=== PATIENT | female | born 1955 | race Caucasian/White ===

== ENCOUNTER 2024-05-02 10:12 | Inpatient (IN) | payer MEDICARE, OTHER ==
[2024-05-02] VITALS (9 sets, daily range): BP systolic 107–120; BP diastolic 62–69; TEMP 98.3–98.6; O2SAT 93–99
[~2024-05-02] VITALS: Ht 167.6 cm; Wt 89.4 kg
[2024-05-02] MEDS ORDERED: methylPREDNISolone SOD SUCC 125 MG/2ML VIAL ONE (10:51)
[2024-05-02] MEDS: methylPREDNISolone SOD SUCC 125 MG/2ML VIAL IV ONE (10:53)
[2024-05-02] MEDS ORDERED: ALBUTEROL FS 2.5 MG/3 ML VIAL.NEB ONE (10:59)
[2024-05-02] MEDS ORDERED: IPRATROPIUM NEB FS 0.5 MG/2.5 ML AMPUL.NEB ONE (10:59)
[2024-05-02 11:01] LABS: BASOPHILS % (AUTO) 0.3 % (0.0-2.0); EOSINOPHILS # (AUTO) 0.2 K/uL (0.0-0.7); EOSINOPHILS % (AUTO) 1.9 % (0.0-6.0); HEMATOCRIT 49 % (33-45); HEMOGLOBIN 16.1 g/dL (11.5-14.8); LYMPHOCYTES # (AUTO) 3.2 K/uL (0.8-4.8); LYMPHOCYTES % (AUTO) 36.1 % (20.0-44.0); MEAN CORPUSCULAR HEMOGLOBIN 29 PG (26.0-33.0); MEAN CORPUSCULAR HGB CONC 33 g/dl (31.0-36.0); MEAN CORPUSCULAR VOLUME 89 fL (82-100); MONOCYTES # (AUTO) 0.5 K/uL (0.1-1.30); MONOCYTES % (AUTO) 5.8 % (2.0-12.0); NEUTROPHILS % (AUTO) 55.9 % (43.0-81.0); PLATELET COUNT (AUTO) 307 K/uL (150-450); RED BLOOD CELL COUNT(AUTO) 5.47 MIL/uL (4.0-5.2); RED CELL DISTRIBUTION WIDTH 13.7 % (11.5-15.0); WHITE BLOOD COUNT (AUTO) 8.9 K/uL (4.3-11.0)
[2024-05-02] MEDS: IPRATROPIUM NEB FS 0.5 MG/2.5 ML AMPUL.NEB NEB ONE (11:06)
[2024-05-02] MEDS: ALBUTEROL FS 2.5 MG/3 ML VIAL.NEB NEB ONE (11:06)
[2024-05-02 11:10] LABS: CALCIUM, SERUM 9.3 mg/dL (8.5-10.1); CREATININE 0.8 mg/dL (0.6-1.3)
[2024-05-02] MEDS ORDERED: DULO20CA PO (11:30)
[2024-05-02] MEDS ORDERED: SERT100T PO (11:30)
[2024-05-02] MEDS ORDERED: TRAZ150T75 PO (11:30)
[2024-05-02] MEDS ORDERED: MELA5TAB PO (11:30)
[2024-05-02] MEDS ORDERED: ACET-868 PO (11:30)
[2024-05-02] MEDS ORDERED: LEVO25TA7 PO (11:30)
[2024-05-02] MEDS ORDERED: MULT-213 PO (11:30)
[2024-05-02] MEDS ORDERED: TRAM100T39 PO (11:30)
[2024-05-02] MEDS ORDERED: GABA-536 PO (11:30)
[2024-05-02] MEDS ORDERED: LIOT5TAB7 PO (11:30)
[2024-05-02] MEDS ORDERED: MAGN400T8 PO (11:30)
[2024-05-02] MEDS ORDERED: PROP10TA10 PO (11:30)
[2024-05-02] MEDS ORDERED: FAMO-131 PO (11:30)
[2024-05-02] MEDS ORDERED: Z GUARD REMEDY 4 OZ OINT TP PRN (12:30)
[2024-05-02] MEDS ORDERED: TRAMADOL HCL 50 MG TABLET PO PRN (12:30)
[2024-05-02] MEDS ORDERED: FAMOTIDINE (20 MG) 20 MG TABLET PO PRN (12:30)
[2024-05-02] MEDS ORDERED: ACETAMINOPHEN 325 MG TABLET PO PRN (12:30)
[2024-05-02] MEDS ORDERED: ONDANSETRON HCL/PF 4 MG/2 ML VIAL IVP PRN (12:30)
[2024-05-02] MEDS: IV NS 0.9% 1,000 ML IV PRN (12:37)
[2024-05-02] MEDS: ENOXAPARIN SODIUM 40 MG/0.4 ML DISP.SYRIN SQ SCH (12:42)
[2024-05-02] MEDS: GABAPENTIN 400 MG CAPSULE PO SCH (12:43)
[2024-05-02] MEDS: methylPREDNISolone SOD SUCC 40 MG/ML VIAL IV SCH (13:11)
[2024-05-02] MEDS: ALBUTEROL FS 2.5 MG/3 ML VIAL.NEB NEB SCH (15:36)
[2024-05-02] MEDS: IPRATROPIUM NEB FS 0.5 MG/2.5 ML AMPUL.NEB NEB SCH (15:36)
[2024-05-02] MEDS: DULOXETINE HCL 20 MG CAPSULE.DR PO SCH (16:39)
[2024-05-02] MEDS: MAGNESIUM OXIDE 400 MG TABLET PO SCH (16:39)
[2024-05-02] MEDS: TRAZODONE 50 MG TABLET PO SCH (21:54)
[2024-05-03] VITALS (12 sets, daily range): BP systolic 98–135; BP diastolic 57–72; TEMP 97.9–98.6; O2SAT 89–97
[2024-05-03 06:43] LABS: HEMATOCRIT 45 % (33-45); HEMOGLOBIN 15.1 g/dL (11.5-14.8); LYMPHOCYTES % (AUTO) 20.7 % (20.0-44.0); MEAN CORPUSCULAR HEMOGLOBIN 30 PG (26.0-33.0); MEAN CORPUSCULAR HGB CONC 34 g/dl (31.0-36.0); MEAN CORPUSCULAR VOLUME 89 fL (82-100); MONOCYTES # (AUTO) 0.4 K/uL (0.1-1.30); MONOCYTES % (AUTO) 4.4 % (2.0-12.0); NEUTROPHILS # (AUTO) 7.1 K/uL (1.8-8.9); NEUTROPHILS % (AUTO) 74.9 % (43.0-81.0); PLATELET COUNT (AUTO) 276 K/uL (150-450); RED BLOOD CELL COUNT(AUTO) 5.03 MIL/uL (4.0-5.2); RED CELL DISTRIBUTION WIDTH 13.3 % (11.5-15.0); WHITE BLOOD COUNT (AUTO) 9.5 K/uL (4.3-11.0)
[2024-05-03 06:57] LABS: CALCIUM, SERUM 8.8 mg/dL (8.5-10.1); CREATININE 0.7 mg/dL (0.6-1.3); MAGNESIUM 2.3 mg/dL (1.8-2.4); POTASSIUM 4.4 mmol/L (3.5-5.1)
[2024-05-03] MEDS: PANTOPRAZOLE 40 MG TABLET.DR PO SCH (08:31)
[2024-05-03] MEDS: LEVOTHYROXINE SODIUM 25 MCG TABLET PO SCH (08:31)
[2024-05-03] MEDS: LIOTHYRONINE SODIUM (5 MCG/TA 5 MCG TABLET PO SCH (08:37)
[2024-05-03] MEDS: SERTRALINE HCL 50 MG TABLET PO SCH (08:38)
[2024-05-03] MEDS: PROPRANOLOL HCL 10 MG TABLET PO SCH (08:43)
[2024-05-04] VITALS (14 sets, daily range): BP systolic 95–121; BP diastolic 59–74; TEMP 97.7–98.4; O2SAT 90–100
[2024-05-04 06:55] LABS: APPEARANCE,URINE CLEAR (CLEAR); BILIRUBIN,URINE NEGATIVE (NEGATIVE); BLOOD, URINE NEGATIVE Ery/uL (NEGATIVE); COLOR,URINE YELLOW (YELLOW); KETONES,URINE NEGATIVE (NEGATIVE); LEUKOCYTE ESTERASE ,URINE TRACE (NEGATIVE); NITRITE, URINE NEGATIVE (NEGATIVE); PROTEIN,URINE NEGATIVE (NEGATIVE); UGLUCOSE NEGATIVE (NEGATIVE); UROBILINOGEN,URINE 0.2 EU/dL (0.2)
[2024-05-04 07:43] LABS: ADD URINE CULTURE NO; BACTERIA,URINE Rare /HPF (None Seen); RBC,URINE 0-2 /HPF (0-2); SQUAMOUS EPITHELIAL CELL,UR Rare /HPF (None Seen)
[2024-05-04] MEDS: methylPREDNISolone SOD SUCC 40 MG/ML VIAL IV SCH (09:03)
[2024-05-05] VITALS (8 sets, daily range): BP systolic 100–122; BP diastolic 65–70; TEMP 97.8–97.9; O2SAT 90–98
[2024-05-05] MEDS ORDERED: PRED20TA PO (13:30)
== END 2024-05-05 15:19 | DRG 189 ==
LOC: ER 10:15 → MED 11:41 → TELE 20:42 → MED 05-04 11:42
PROVIDERS: ADMIT Nurse Practitioner Acute Care; ATTEND Nurse Practitioner Acute Care
DX: J96.01 Acute respiratory failure with hypoxia (principal); J44.1 Chronic obstructive pulmonary disease with (acute) exacerbation; G89.4 Chronic pain syndrome; G25.0 Essential tremor; Z20.822 Contact with and (suspected) exposure to COVID-19; Z86.16 Personal history of COVID-19; Z96.651 Presence of right artificial knee joint; M19.90 Unspecified osteoarthritis, unspecified site; F32.A Depression, unspecified; F41.0 Panic disorder [episodic paroxysmal anxiety]; K21.9 Gastro-esophageal reflux disease without esophagitis; M48.00 Spinal stenosis, site unspecified; Z87.891 Personal history of nicotine dependence; Z79.890 Hormone replacement therapy; Z79.899 Other long term (current) drug therapy; E03.9 Hypothyroidism, unspecified; Z87.01 Personal history of pneumonia (recurrent)
CPT/HCPCS: 36415; 71045-TC; 80048-TC; 80061-TC; 81001; 83735-TC; 84100-TC; 84443-TC; 85025-TC; 87081-TC; 87086-TC; 94799-TC; 97110-TC; 97530-TC; G0378; J1650; J2919; J7030

== ENCOUNTER 2025-06-23 08:36 | Inpatient (IN) | payer MEDICARE, MEDICAID ==
[2025-06-23] VITALS (7 sets, daily range): BP systolic 107–117; BP diastolic 61–69; TEMP 97.5–98.1; O2SAT 92–100
[~2025-06-23] VITALS: Ht 170.2 cm; Wt 100.2 kg
[~2025-06-23 08:36] MED LIST: ACET-868 PO; DULO20CA PO; FAMO-131 PO; GABA-536 PO; LEVO25TA7 PO; LIOT5TAB7 PO; MAGN400T8 PO; MELA5TAB PO; MULT-213 PO; PRED20TA PO; PROP10TA10 PO; SERT100T PO; TRAM100T39 PO; TRAZ150T75 PO
[2025-06-23 09:11] LABS: PLATELET COUNT (AUTO) 233 K/uL (150-450); RED BLOOD CELL COUNT(AUTO) 5.21 MIL/uL (4.0-5.2); RED CELL DISTRIBUTION WIDTH 14.6 % (11.5-15.0); WHITE BLOOD COUNT (AUTO) 11.4 K/uL (4.3-11.0)
[2025-06-23 09:23] LABS: CALCIUM, SERUM 8.6 mg/dL (8.5-10.1); CREATININE 1.0 mg/dL (0.6-1.3); SODIUM SERUM 140.0 mmol/L (136-145); UREA NITROGEN, BLOOD 7.0 mg/dL (7-18)
[2025-06-23] MEDS ORDERED: IPRATROPIUM NEB FS 0.5 MG/2.5 ML AMPUL.NEB ONE (09:25)
[2025-06-23] MEDS ORDERED: ALBUTEROL FS 2.5 MG/3 ML VIAL.NEB ONE (09:25)
[2025-06-23 09:29] LABS: ASPARTATE AMINOTRANSFERASE 22.0 U/L (15-37); TOTAL PROTEIN, SERUM 7.5 g/dL (6.4-8.2)
[2025-06-23] MEDS: IPRATROPIUM NEB FS 0.5 MG/2.5 ML AMPUL.NEB NEB ONE (09:30)
[2025-06-23] MEDS: ALBUTEROL FS 2.5 MG/3 ML VIAL.NEB NEB ONE (09:30)
[2025-06-23 09:33] LABS: ABG BASE EXCESS 0.6 mmol/L (-2.0-3.0); ABG OXYGEN SATURATION 94.2 % (94.0-98.0); ABG PCO2 46.1 mmHg (32.0-45.0); ABG PH 7.375 (7.350-7.450); ABG PO2 73.8 mmHg (83.0-108.0); ABG TOTAL HEMOGLOBIN 16.7 G/dL (12.0-16.0); FLOW, BLOOD GAS 4.00 L/min (0.00-30.00); FRACTIONATED INSPIRED OXYGEN 36.0 %; SITE, ABG RIGHT RADIAL
[2025-06-23] MEDS ORDERED: BUPR-54 PO (11:20)
[2025-06-23] MEDS ORDERED: TIOT4MIS5 INH (11:20)
[2025-06-23] MEDS ORDERED: BUDE10.26 IH (11:20)
[2025-06-23] MEDS ORDERED: DONE10TA44 PO (11:20)
[2025-06-23] MEDS ORDERED: MAG HYDROX/AL HYDROX/SIMETH 30 ML UDC PO PRN (12:00)
[2025-06-23] MEDS ORDERED: MAGNESIUM HYDROXIDE 30 ML UDC PO PRN (12:00)
[2025-06-23] MEDS ORDERED: Z GUARD REMEDY 4 OZ OINT TP PRN (12:00)
[2025-06-23] MEDS ORDERED: ACETAMINOPHEN 325 MG TABLET PO PRN (12:00)
[2025-06-23] MEDS ORDERED: FAMOTIDINE (20 MG) 20 MG TABLET PO PRN (12:00)
[2025-06-23] MEDS ORDERED: ONDANSETRON HCL/PF 4 MG/2 ML VIAL IVP PRN (12:00)
[2025-06-23] MEDS: GABAPENTIN 400 MG CAPSULE PO SCH (12:55)
[2025-06-23] MEDS: ACETAMINOPHEN 325 MG TABLET PO PRN (12:55)
[2025-06-23] MEDS: ENOXAPARIN SODIUM 40 MG/0.4 ML DISP.SYRIN SQ SCH (12:57)
[2025-06-23] MEDS: CEFTRIAXONE 1 G in IV D5W 50 ML IV SCH (13:18)
[2025-06-23] MEDS: MAGNESIUM OXIDE 400 MG TABLET PO SCH (16:17)
[2025-06-23] MEDS: DULOXETINE HCL 20 MG CAPSULE.DR PO SCH (16:18)
[2025-06-23] MEDS: ALBUTEROL FS 2.5 MG/3 ML VIAL.NEB NEB SCH (17:34)
[2025-06-23] MEDS: IPRATROPIUM NEB FS 0.5 MG/2.5 ML AMPUL.NEB NEB SCH (17:34)
[2025-06-23] MEDS: TRAZODONE 50 MG TABLET PO SCH (21:14)
[2025-06-24] VITALS (11 sets, daily range): BP systolic 99–117; BP diastolic 54–69; TEMP 97.2–97.9; O2SAT 92–98
[2025-06-24 07:31] LABS: PLATELET COUNT (AUTO) 226 K/uL (150-450); RED BLOOD CELL COUNT(AUTO) 4.78 MIL/uL (4.0-5.2); RED CELL DISTRIBUTION WIDTH 13.8 % (11.5-15.0); WHITE BLOOD COUNT (AUTO) 7.3 K/uL (4.3-11.0)
[2025-06-24 07:52] LABS: CALCIUM, SERUM 8.6 mg/dL (8.5-10.1); CREATININE 0.7 mg/dL (0.6-1.3); PHOSPHORUS 3.6 mg/dL (2.5-4.9); SODIUM SERUM 141.0 mmol/L (136-145); UREA NITROGEN, BLOOD 11.0 mg/dL (7-18)
[2025-06-24] MEDS: LEVOTHYROXINE SODIUM 25 MCG TABLET PO SCH (08:34)
[2025-06-24] MEDS: DONEPEZIL 5 MG TABLET PO SCH (08:35)
[2025-06-24] MEDS: LIOTHYRONINE SODIUM (5 MCG/TA 5 MCG TABLET PO SCH (08:35)
[2025-06-24] MEDS: BUPROPION XL 150 MG TAB.ER.24 PO SCH (10:53)
[2025-06-24] MEDS: PROPRANOLOL HCL 10 MG TABLET PO SCH (11:13)
[2025-06-25] VITALS (12 sets, daily range): BP systolic 106–129; BP diastolic 56–75; TEMP 97.3–97.9; O2SAT 89–99
[2025-06-25 06:44] LABS: PLATELET COUNT (AUTO) 234 K/uL (150-450); RED BLOOD CELL COUNT(AUTO) 4.77 MIL/uL (4.0-5.2); RED CELL DISTRIBUTION WIDTH 14.0 % (11.5-15.0); WHITE BLOOD COUNT (AUTO) 9.3 K/uL (4.3-11.0)
[2025-06-25 07:06] LABS: CALCIUM, SERUM 8.7 mg/dL (8.5-10.1); CREATININE 0.6 mg/dL (0.6-1.3); SODIUM SERUM 138.0 mmol/L (136-145); UREA NITROGEN, BLOOD 16.0 mg/dL (7-18)
[2025-06-25] MEDS ORDERED: AZIT500T4 PO (09:18)
[2025-06-25] MEDS ORDERED: PRED50TA PO (09:18)
== END 2025-06-25 19:25 | disposition home health service (06) | DRG 193 ==
LOC: ER 08:46 → TELE 11:04
PROVIDERS: ADMIT Internal Medicine; ATTEND Internal Medicine
DX: J15.9 Unspecified bacterial pneumonia (principal); J96.01 Acute respiratory failure with hypoxia; J96.02 Acute respiratory failure with hypercapnia; J44.1 Chronic obstructive pulmonary disease with (acute) exacerbation; Z86.16 Personal history of COVID-19; Z96.651 Presence of right artificial knee joint; M19.90 Unspecified osteoarthritis, unspecified site; F32.A Depression, unspecified; M48.00 Spinal stenosis, site unspecified; F41.0 Panic disorder [episodic paroxysmal anxiety]; Z79.890 Hormone replacement therapy; Z79.899 Other long term (current) drug therapy; G89.29 Other chronic pain; G62.9 Polyneuropathy, unspecified; Z74.01 Bed confinement status; G25.0 Essential tremor; E66.01 Morbid (severe) obesity due to excess calories; G47.33 Obstructive sleep apnea (adult) (pediatric); E03.9 Hypothyroidism, unspecified; F17.200 Nicotine dependence, unspecified, uncomplicated; Z86.59 Personal history of other mental and behavioral disorders; Z20.822 Contact with and (suspected) exposure to COVID-19
CPT/HCPCS: 36415; 36600; 71045-TC; 80048-TC; 80076-TC; 82803-TC; 83735-TC; 84100-TC; 85025-TC; 87081-TC; 94760-TC; 94799-TC; A4223; G0378; J0696; J1650; J2919; J7060